=== PATIENT | male | born 1960 | race Caucasian/White ===

== ENCOUNTER 2017-01-12 08:24 | Outpatient (CLI) | payer OTHER ==
[~2017-01-12] VITALS: Ht 188 cm; Wt 86.4 kg
--- NOTE | ~2017-01-12 | HEMODYNAMI ---
PATIENT:ZION SMALLWOOD MEDICAL RECORD: [id number] : 62 LOCATION:D.CAT ADMISSION DATE: 01/12/17 Generatedon:01/12/201711:35 Patient name: ZION SMALLWOOD Patient #: [id number] SSN: : 1960 Date of study: 01/12/2017 Page: Of Hemodynamic Procedure Report Patient Data Patient Demographics Procedure consent was obtained First Name: ZION Gender: Male Last Name: CL : 1960 Middle Initial: GILMAR Age: 56 year(s) Patient #: [id number] Race: Unknown Additional ID: [id number] Contact details [address]: [address] [place] [address] State: [place] City: [place] Zip code: [address] Past Medical History Allergies: No known allergies Admission Admission Data Admission Date: 01/12/2017 Admission Time: 8:24 Height (in.): 74 BSA: 2.13 (m2) Height (cm.): 187.96 BMI: 24.39 (kg/m2) Weight (lbs.): 190 Weight (kg.): 86.18 Medications upon Admission Medications Dosage Times Administered Last Remarks per Delivery Day Date and Time Clopidogrel Yes 01/12/2017 0:00 Lab Results Lab Result Date: 01/12/2017 Lab Result Time: 9:10 Biochemistry Name Units Result Min Max BUN mg/dl 20 --(----)*- 7 18 CK-MB ng/ml 1.2 --(-*--)-- 0 3.6 Creatinine mg/dl 1 --(--*-)-- 0.6 1.3 Creatinine l 86 --(-*--)-- 21 215 Kinase Troponin l ng/ml 0.017 --(-*--)-- 0 0.06 CBC Name Units Result Min Max Hematocrit % 44.3 --(*---)-- 42 54 Hemoglobin g/dl 15 --(-*--)-- 13.5 17.5 Procedure Procedure Types Cath Procedure Diagnostic Procedure [facility] w/Coronaries Peripheral Cath Diagnostic Procedure Cath Peripheral Four Vessel Arteriogram Procedure Description Procedure Date Procedure Date: 01/12/2017 Procedure Start Time: 11:11 Procedure End Time: 11:34 Procedure Staff Name Function Troy Diaz MD Performing Physician Mali Martines RT Scrub Akhil Odell RN Nurse Jose Eduardo Pham RT Monitor Procedure Data Cath Procedure Fluoroscopy Diagnostic fluoroscopy Total fluoroscopy Time: 4.5 time: 4.5 min min Diagnostic fluoroscopy Total fluoroscopy dose: 948 dose: 948 mGy mGy Contrast Material Contrast Material Type Amount (ml) Isovue 300 186 Entry Location Entry Primary Successful Side Size Upsize Upsize Entry Closure Succes sful Closure Location (Fr) 1 (Fr) 2 (Fr) Remarks Device Remarks Femoral Right 5 Fr 6 Fr Exoseal artery Short Estimated blood loss: 10 ml Diagnostic catheters Device Type Used For End Catheter Placement Cordis 5Fr Pigtail Procedure Catheter (MP) Cordis 5Fr JL 4.0 Procedure Catheter (MP) Cordis 5Fr 3DRC Catheter Procedure (MP) Procedure Complications No complications Procedure Medications Medication Administration Route Dosage Oxygen NC 2 l/min Heparin Flush Bag added to field 2 bags (1000units/500ml NS) 0.9% NaCl I.V. 100 ml/hr Fentanyl I.V. 50 mcg Versed I.V. 1 mg Fentanyl I.V. 50 mcg Versed I.V. 1 mg Fentanyl I.V. 50 mcg Fentanyl I.V. 50 mcg Heparin Bolus I.V. 4000 units Nitroglycerin IC/IA I.C. 200 mcg Nitroglycerin IC/IA I.C. 150 mcg Hemodynamics Rest BSA: 2.13 (m2) HGB: 15 (g/dl) O2 Consumption: Estimated: 255.06 (ml/min) O2 Cons umption indexed: Estimated:119.75 (ml/min/m) Heart Rate: 73 (bpm) Pressure Samples Time Site Value (mmHg) Purpose Heart Use Rate(bpm) 11:12 LV 123/1,7 Snapshot 83 Snapshots Pre Cath Intra NCS Post Cath Vital Signs Time Heart Resp SPO2 NIBP (mmHg) Rhythm Pain Sedation Rate (ipm) (%) Status Level (bpm) 10:44:52 66 16 98 146/80(121) NSR 0 (11) 10(A) , No pain 10:49:12 72 18 98 148/78(131) NSR 0 (11) 10(A) , No pain 10:53:32 72 17 99 138/76(114) NSR 0 (11) 10(A) , No pain 10:57:44 71 17 99 130/80(108) NSR 0 (11) 10(A) , No pain 11:01:56 75 16 98 132/79(112) NSR 0 (11) 10(A) , No pain 11:06:10 74 18 98 129/77(106) NSR 0 (11) 10(A) , No pain 11:10:24 70 17 98 133/74(106) NSR 0 (11) 9(A) , No pain 11:14:38 78 18 98 133/79(115) NSR 0 (11) 9(A) , No pain 11:18:50 78 18 98 126/77(116) NSR 0 (11) 9(A) , No pain 11:23:02 80 18 98 128/76(106) NSR 0 (11) 9(A) , No pain 11:27:14 91 17 96 123/76(93) NSR 0 (11) 9(A) , No pain 11:28:36 87 18 97 125/71(100) NSR 0 (11) 9(A) , No pain 11:32:48 79 14 97 122/71(108) NSR 0 (11) 9(A) , No pain Medications Time Medication Route Dose Verified Delivered Reason Notes Effectiveness by by 10:47:45 Oxygen NC 2 Akhil Landaverde Per physician l/min Jose R Odell RN RN 10:47:53 Heparin Flush added 2 Akhil Akhil used for Bag to bags Jose R Odell RN procedure (1000units/500ml field RN NS) 10:48:05 0.9% NaCl I.V. 100 Akhil Landaverde Per physician ml/hr Jose R Odell RN RN 11:05:45 Fentanyl I.V. 50 Akhil Akhil for sedation mcg Jose R Odell RN RN 11:05:51 Versed I.V. 1 mg Akhil Akhil for sedation Jose R Odell RN RN 11:08:14 Fentanyl I.V. 50 Akhil Landaverde for sedation mcg Jose R Odell RN RN 11:08:17 Versed I.V. 1 mg Akhil Landaverde for sedation Jose R Odell RN RN 11:11:44 Fentanyl I.V. 50 Akhil Landaverde for sedation mcg Jose R Odell RN RN 11:17:06 Fentanyl I.V. 50 Akhil Landaverde for sedation mcg Jose R Odell RN RN 11:17:15 Heparin Bolus I.V. 4000 Akhil Landaverde for units Jose R Odell RN anticoagulation RN 11:24:16 Nitroglycerin I.C. 200 Akhil Simmons for IC/IA mcg Jose R Diaz MD vasodilation RN 11:25:26 Nitroglycerin I.C. 150 Akhil Simmons for IC/IA mcg Jose R Diaz MD vasodilation crowning inspector Log Time Note 10:15:33 Patient Height : 187.96 cm 10:15:35 Patient Weight : 86.18 kg 10:15:57 H&P Date Dictated: 01/11/2017 Within 30 days and on chart., H&P Addendum completed by physician on day of procedure. (MUST COMPLETE FOR ALL OUTPATIENTS). 10:16:03 ACC The patient was administered the following blood thiners within the last 24 hours: ACCPlavix 10:30:12 Mali Counts RT(R) sent for patient. Start room use. 10:43:17 Time tracking: Regular hours 10:43:21 Plan of Care:Hemodynamics will remain stable., Cardiac rhythm will remain stable., Comfort level will be maintained., Respiratory function will remain adequate., Patient/ family verbilizes understanding of procedure., Procedure tolerated without complication., Recovers from procedure without complications.. 10:43:25 Patient received from Pre/Post Procedure Room to [facility] 2 Alert and oriented. Tansferred to table in Supine position. 10:43:26 Warm blankets applied, and loida hugger turned on for patient comfort. 10:43:26 Correct patient and procedure confirmed by team. 10:43:27 Signed procedure consent form obtained from patient. 10:43:28 ECG and BP/O2 sat monitors applied to patient. 10:43:29 Vital chart was started 10:43:29 Full Disclosure recording started 10:47:45 Oxygen 2 l/min NC was administered by Akhil Odell RN; Per physician; 10:47:53 Heparin Flush Bag (1000units/500ml NS) 2 bags added to field was administered by Akhil Odell RN; used for procedure; 10:48:05 0.9% NaCl 100 ml/hr I.V. was administered by Akhil Odell RN; Per physician; 10:49:48 H&P Date Dictated: 01/11/2017 Within 30 days and on chart., H&P Addendum completed by physician on day of procedure. (MUST COMPLETE FOR ALL OUTPATIENTS). 10:49:49 Pre-procedure instructions explained to patient. 10:49:50 Pre-op teaching completed and patient verbalized understanding. 10:49:52 Family in patients room. 10:49:53 Patient NPO since Midnight. 10:50:00 Patient allergic to No known allergies 10:50:02 Is the patient allergic to Iodine/contrast media? No. 10:50:03 Is patient on blood thinner?Yes 10:50:05 ACC The patient was administered the following blood thiners within the last 24 hours: ACCPlavix 10:50:06 Patient diabetic? No. 10:50:09 Previous problem with sedation/anesthesia? No ? 10:50:10 Snore? Yes 10:50:10 Sleep apnea? No 10:50:11 Deviated septum? No 10:50:12 Opens mouth fully? Yes 10:50:13 Sticks out tongue? Yes 10:50:20 Airway obstruction? No ? 10:50:22 Dentures? No ? 10:50:25 Pre procedure: right dorsailis pedis pulse 2+ Normal; easily identifiable; not easily obliterated 10:50:27 Patient pain scale 0/10 ?. 10:50:32 IV patent on arrival in left hand with 0.9% NaCl at O. 10:50:58 Lab Result : BUN 20 mg/dl 10:50:58 Lab Result : Hemoglobin 15 g/dl 10:50:58 Lab Result : Creatinine 1 mg/dl 10:50:58 Lab Result : Hematocrit 44.3 % 10:51:00 Lab results completed and on chart. 10:51:03 Right groin area was prepped with chlora-prep and draped in sterile fashion 10:51:14 Alarms reviewed by R. N. 10:51:14 Sharps counted by scrub and verified by R.N. 10:51:17 Use device set Femoral Dx 10:51:19 Tegaderm 4 x 4 opened to sterile field. 10:51:20 Acist Hand Control opened to sterile field. 10:51:20 Acist Manifold opened to sterile field. 10:51:22 Acist Syringe opened to sterile field. 10:51:22 Bag Decanter opened to sterile field. 10:51:23 Medline Cath Pack opened to sterile field. 10:51:23 Terumo 5Fr [place] Sheath opened to sterile field. 10:51:23 St Lamont 260cm J .035 wire opened to sterile field. 10:51:24 Diagnostic Infinity 5Fr Multipack catheter opened to sterile field. 10:51:28 Baseline sample Acquired. 10:51:32 Rhythm: sinus rhythm 10:53:25 Lab Result : CK-MB 1.2 ng/ml 10:53:25 Lab Result : Creatinine Kinase 86 l 10:53:25 Lab Result : Troponin l 0.017 ng/ml 10:59:43 Zero performed for pressure channel P1 10:59:48 Zero performed for pressure channel P1 11:00:00 Physician arrived 11:00:01 --------ALL STOP TIME OUT------ 11:00:01 Final Timeout: patient, procedure, and site verified with staff and physician. All members of the team are in agreement. 11:00:02 Right groin site verified by team. 11:00:04 Physical assessment completed. ASA score P 2 - A patient with mild systemic disease as per Troy Diaz MD. 11:00:07 Sedation plan: IV Moderate Sedation Versed, Fentanyl 11:00:26 Procedure type changed to Cath procedure, Diagnostic procedure, LHC, LHC w/Coronaries, Peripheral Cath Diagnostic Procedure, Cath Peripheral, Four Vessel Arteriogram 11:05:45 Fentanyl 50 mcg I.V. was administered by Akhil Odell RN; for sedation; 11:05:51 Versed 1 mg I.V. was administered by Akhil Odell RN; for sedation; 11:08:14 Fentanyl 50 mcg I.V. was administered by Akhil Odell RN; for sedation; 11:08:17 Versed 1 mg I.V. was administered by Akhil Odell RN; for sedation; 11:11:09 Procedure started. 11:11:12 Local anesthetic to right femoral artery with Lidocaine 2% by Troy Diaz MD.INITIAL ACCESS ONLY 11:11:18 A 5 Fr sheath was inserted into the Right Femoral artery 11:11:44 Fentanyl 50 mcg I.V. was administered by Akhil Odell RN; for sedation; 11:12:05 A Cordis 5Fr Pigtail Catheter (MP) was advanced over the wire and used for Procedure. 11:12:30 LV gram done using GARCIA 11:12:40 EF : 55 % 11:12:44 Injector settings: Ml/sec: 5, Volume: 15, 11:12:50 Catheter exchanged over wire. 11:12:58 A Cordis 5Fr JL 4.0 Catheter (MP) was advanced over the wire and used for Procedure. 11:13:15 LCA angiography performed. 11:13:59 Terumo 6Fr [place] Sheath opened to sterile field. 11:14:06 [employer] BasixCompak Inflation Kit opened to sterile field. 11:14:07 Cline WaferGen Biosystemsisper J 300cm 0.014 guide wire opened to sterile field. 11:14:09 Catheter exchanged over wire. 11:14:12 A Cordis 5Fr 3DRC Catheter (MP) was advanced over the wire and used for Procedure. 11:14:18 RCA angiography performed. 11:15:16 Left carotid angiography performed. 11:15:18 Right subclavian angiography performed 11:15:23 Right carotid angiography performed. 11:16:16 Catheter removed. 11:16:22 Cordis 6FR XBLAD 3.5 guide catheter opened to sterile field. 11:16:29 Sheath upsized to a 6 Fr Short. 11:16:36 6 Fr xblad 3.5 guide catheter was inserted over the wire 11:17:06 Fentanyl 50 mcg I.V. was administered by Akhil Odell RN; for sedation; 11:17:15 Heparin Bolus 4000 units I.V. was administered by Akhil Odell RN; for anticoagulation; 11:19:23 whisper wire advanced. 11:20:43 Wire advanced across lesion. 11:20:48 Inflation Number: 1 A Biofreedom 2.5 x 11 stent (No Cost Implant) was prepped and advanced across the Mid CX. The stent was deployed at 11 AN for 0:10 (min:sec). 11:20:52 Stent catheter was removed intact over wire. 11:21:49 Inflation Number: 1 A Biofreedom 3.0 x 11 stent (No Cost Implant) was prepped and advanced across the Prox CX. The stent was deployed at 11 AN for 0:10 (min:sec). 11:22:17 Inflation number: 3 The stent balloon was then re-inflated across the Mid CX to 1 AN for 0:10 (min:sec). 11:22:58 Inflation number: 2 The stent balloon was then re-inflated across the Mid CX to 3 AN for 0:17 (min:sec). 11:23:51 Stent catheter was removed intact over wire. 11:24:16 Nitroglycerin IC/IA 200 mcg I.C. was administered by Troy Diaz MD; for vasodilation; 11:25:26 Nitroglycerin IC/IA 150 mcg I.C. was administered by Troy Diaz MD; for vasodilation; 11:27:10 Wire removed. 11:27:10 Guide catheter removed. 11:27:15 Cordis 6Fr Exoseal opened to sterile field. 11:27:31 Sheath removed intact; hemostasis achieved with Exoseal to the Right Femoral artery. 11:27:32 Procedure ended.(Physican Out) 11:33:20 Fluoroscopy time 04.50 minutes. 11:33:27 Fluoroscopy dose: 948 mGy 11:33:27 Flurop Dose total: 948 11:33:31 Contrast amount:Isovue 300 186ml. 11:33:32 Sharps counted by scrub and verified by R.N. 11:33:33 Insertion/operative site no bleeding no hematoma. 11:33:36 Post-op/insertion site Right Femoral artery dressed using a 4 x 4 and Tegaderm. 11:33:39 Post right femoral artery:stable, soft, clean and dry 11:33:40 Post Procedure Pulses reassessed and unchanged 11:33:42 Post-procedure physical assessment completed. ASA score P 2 - A patient with mild systemic disease as per Troy Diaz MD. 11:33:44 Post procedure rhythm: unchanged. 11:33:46 Estimated blood loss: 10 ml 11:33:47 Post procedure instruction explained to patient.Patient verbalizes understanding. 11:33:47 Patient needs reinforcement of post procedure teaching. 11:34:32 Procedure Complication : No complications 11:34:34 Vital chart was stopped 11:34:34 See physician's report for complete and final results. 11:34:36 Report given to Pre/Post Procedure Room. 11:34:38 Patient transfered to Pre/Post Procedure Room with Stretcher. 11:34:40 Procedure ended. 11:34:40 Full Disclosure recording stopped 11:34:47 ACC-PCI Only Patient was given prescriptions, or instructed by Troy Diaz MD to start/continue the following medications upon discharge: Plavix 11:34:49 End room use (Document Last) Intervention Summary Intervention Notes Time ActionType Lesion and Equipment Action# Pressure Duration Attributes Used 11:20:48 Place stent Mid CX Biofreedom 1 11 00:10 2.5 x 11 stent (No Cost Implant) 11:21:49 Place stent Prox CX Biofreedom 1 11 00:10 3.0 x 11 stent (No Cost Implant) 11:22:17 Reinflate Mid CX Biofreedom 3 1 00:10 stent 3.0 x 11 balloon stent (No Cost Implant) 11:22:58 Reinflate Mid CX Biofreedom 2 3 00:17 stent 3.0 x 11 balloon stent (No Cost Implant) Device Usage Item Name Manufacture Quantity Catalog Hospital Part Current Minimal Lot# / Number Charge Number Stock Stock Serial# Code Tegaderm 4 1 [id number] [id number] 622704 [id number] 5 x 4 Acist Hand Acist 1 16733 183705 506173 603845 5 Control [employer] Inc Acist Acist 1 98896 777150 957355 766679 5 Manifold [employer] Inc Acist Acist 1 26159 979494 360859 712827 20 Syringe Medical Systems Inc Bag Microtek 1 2002S 540490 56977 771955 5 Decanter [employer] Inc[employer] Medline Cardinal 1 [id number] 258192 79501 743753 5 Cath Pack Health Terumo 5Fr Terumo 1 [id number] 846373 409630 463212 [address] Lamont 1 288715 901371 638223 702719 30 260cm J .035 wire Diagnostic Cardinal 1 [id number] 689218 93901 648229 30 Infinity Health 5Fr Multipack catheter Cordis 5Fr Cardinal 1 [id number] 5 Pigtail Health Catheter (MP) Cordis 5Fr Cardinal 1 [id number] 5 JL 4.0 Health Catheter (MP) Terumo 6Fr Terumo 1 [id number] 622764 211007 752785 40 [place] Sheath [facility] 1 [id number] 605438 137967 764601 15 BasixCompak Medical Inflation Kit Cline Cline 1 [id number] 428460 570998 050534 5 Whisper J Vascular 300cm 0.014 guide wire Cordis 5Fr Cardinal 1 [id number] 5 [facility] Health Catheter (MP) Cordis 6FR Cardinal 1 [id number] 268838 493637 474604 10 XBLAD 3.5 Health guide catheter Biofreedom Biosensors 1 [id number] 416966 276371 5 [id number] 2.5 x 11 [place] stent (No Cost Implant) Biofreedom Biosensors 1 [facility] 446897 446067 5 [id number] 3.0 x 11 [place] SA stent (No Cost Implant) Cordis 6Fr Cardinal 1 [id number] 609125 766072 10 [facility] [employer] Signature Audit Neely Stage Time Signature Unsigned Intra-Procedure 01/12/2017 Jose Eduardo Pham 11:35:03 AM RT(R) Signatures Monitor : Jose Eduardo Pham RT Signature : Date : Time : [id number] [place] [address]
[2017-01-12] MEDS ORDERED: ZESTORETIC 10/11 TAB PO (08:55)
[2017-01-12] MEDS ORDERED: PRINIVIL10 MG PO (08:56)
[2017-01-12] MEDS ORDERED: PLAVIX75 MG PO ×2 (08:57→12:41)
[2017-01-12] MEDS ORDERED: BAYER CHEWABLE81 MG PO (08:57)
[2017-01-12 08:59] VITALS: BP 129/72; Ht 188 cm; Wt 86.4 kg
[2017-01-12 09:19] LABS: BASOPHILS 0.3 % (0-2); EOSINOPHILS 1.3 % (0-7); HEMATOCRIT 44.3 % (42.0-54.0); IMMATURE GRANULOCYTES 0.1 % (0-5); LYMPHOCYTES 30.8 % (15-50); MCH 32.3 pg (26.0-34.0); MCHC 33.9 g/dL (31.0-37.0); MCV 95.5 fL (80.0-100.0); MEAN PLATELET VOLUME 9.9 fL (7.4-10.4); MONOCYTES 9.4 % (2-11); NEUTROPHILS 58.1 % (40-80); PLATELET COUNT 222 10x3/uL (130-400); RBC 4.64 10x6/uL (4.20-6.10); RDW 13.1 % (11.5-14.5); WBC 7.8 10x3/uL (4.8-10.8)
[2017-01-12 09:31] LABS: CALC OSMOLALITY 276 mosm/kg (275-300); CALCIUM 9.2 mg/dL (8.5-10.1); CARBON DIOXIDE 30.3 mmol/L (21.0-32.0); CHLORIDE - SERUM 102 mmol/L (98-107); GLUCOSE 107 mg/dL (74-106); POTASSIUM - SERUM 4.9 mmol/L (3.5-5.1); SODIUM 137 mmol/L (136-145); UREA NITROGEN 20 mg/dL (7-18); eGFR NON AFRICAN AMERICAN 82 mL/min (90-120)
[2017-01-12] MEDS ORDERED: IBUPROFEN800 MG (09:38)
[2017-01-12 10:11] LABS: CKMB 1.2 U/L (0.0-3.6); CREATINE KINASE 86 UL (21-232); TROPONIN-I < 0.017 ng/mL (0.000-0.060)
--- NOTE | 2017-01-12 12:02 | NUR ---
1145 RECEIVED PT FROM ELECTRICAL REPAIRER. PT DENIES ANY C/O CHEST PAIN OR NAUSEA. DRESSING TO RIGHT GROIN IS CDI, AREA IS NONTENDER. PEDAL PULSES PALPABLE, CAP REFILL IS BRISK. SINUS RHYTHM, RATE 65. SIGNIFICANT OTHER AT BEDSIDE, CALL LIGHT IN REACH.
--- NOTE | 2017-01-12 12:07 | NUR ---
1200 PT DENIES ANY C/O. RIGHT GROIN STABLE, PEDAL PULSES PALPABLE. VSS. DR COREA HAS ROUNDED ON PT. CALL LIGHT IN REACH.
--- NOTE | 2017-01-12 12:27 | NUR ---
1225 PT DENIES ANY C/O. RIGHT GROIN IS STABLE, PEDAL PULSES PALPABLE. VSS, CONTINUE PLAN OF CARE.
--- NOTE | 2017-01-12 14:08 | NUR ---
1330 PT DENIES ANY C/O. RIGHT GROIN STABLE, VSS, CALL LIGHT IN REACH.
--- NOTE | 2017-01-12 15:15 | NUR ---
1430 PT VOIDED APPROX 400 CC CLEAR YELLOW URINE IN URINAL. DENIES ANY C/O. RIGHT GROIN IS STABLE. 1515 IV DC'D WITH CATH INTACT. POST PROCEDURE EKG OBTAINED. PT DRESSING FOR DC TO HOME.
--- NOTE | 2017-01-12 16:15 | NUR ---
1530 REVIEWED DC INSTRUCTIONS WITH PT WHO VERBALIZES UNDERSTANDING. PT HAS VOIDED ANOTHER 350 CC CLEAR YELLOW URINE. PT ESCORTED TO PRIVATE AUTO VIA WC BY STAFF WITH DRIVING HIM HOME. PLAVIX RX, STENT CARD AND EXOSEAL CARD TO PATIENT WITH WRITTEN DC INSTRUCTIONS. PT DENIES ANY C/O UPON DC.
== END 2017-01-12 15:30 | disposition home or self-care (01) ==
LOC: D.CATH 08:24
PROVIDERS: Internal Medicine Interventional Cardiology
DX: I20.9 Angina pectoris, unspecified (principal); I10 Essential (primary) hypertension; Z87.891 Personal history of nicotine dependence; R42 Dizziness and giddiness; Z01.812 Encounter for preprocedural laboratory examination; Z00.6 Encounter for examination for normal comparison and control in clinical research program

== ENCOUNTER 2017-01-17 13:36 | Emergency (ER) | payer OTHER ==
[2017-01-12 08:59] VITALS: BMI 24.4
[~2017-01-17 13:36] MED LIST: BAYER CHEWABLE81 MG PO; IBUPROFEN800 MG; PLAVIX75 MG PO; PRINIVIL10 MG PO; ZESTORETIC 10/11 TAB PO
[2017-01-17 15:42] LABS: BASOPHILS 0.3 % (0-2); EOSINOPHILS 2.1 % (0-7); HEMATOCRIT 39.7 % (42.0-54.0); HEMOGLOBIN 13.4 g/dL (13.5-17.5); IMMATURE GRANULOCYTES 0.1 % (0-5); LYMPHOCYTES 34.2 % (15-50); MCH 31.9 pg (26.0-34.0); MCHC 33.8 g/dL (31.0-37.0); MCV 94.5 fL (80.0-100.0); MEAN PLATELET VOLUME 9.8 fL (7.4-10.4); MONOCYTES 7.7 % (2-11); NEUTROPHILS 55.6 % (40-80); PLATELET COUNT 223 10x3/uL (130-400); RDW 12.9 % (11.5-14.5)
[2017-01-17 15:52] LABS: INR 0.95 (0.85-1.17); PROTIME 12.5 SECONDS (11.6-15.0)
[2017-01-17 16:01] LABS: ALBUMIN 3.4 g/dL (3.4-5.0); ALKALINE PHOSPHATASE 71 U/L (46-116); ALT (SGPT) 20 U/L (10-68); CALC OSMOLALITY 277 mosm/kg (275-300); CALCIUM 8.5 mg/dL (8.5-10.1); CARBON DIOXIDE 28.5 mmol/L (21.0-32.0); CHLORIDE - SERUM 104 mmol/L (98-107); CREATININE - SERUM 0.9 mg/dL (0.6-1.3); GLUCOSE 103 mg/dL (74-106); POTASSIUM - SERUM 4.3 mmol/L (3.5-5.1); PROTEIN - SERUM 7.3 g/dL (6.4-8.2); SODIUM 138 mmol/L (136-145); UREA NITROGEN 17 mg/dL (7-18); eGFR NON AFRICAN AMERICAN > 90 mL/min (90-120)
== END 2017-01-17 17:10 | disposition home or self-care (01) ==
LOC: D.ER 13:36
PROVIDERS: Family Medicine
DX: G89.18 Other acute postprocedural pain (principal); L76.32 Postprocedural hematoma of skin and subcutaneous tissue following other procedure; I10 Essential (primary) hypertension; F17.200 Nicotine dependence, unspecified, uncomplicated